=== PATIENT | male | born 1955 | race Hispanic/Latino ===

== ENCOUNTER 2018-11-24 09:08 | Inpatient (IN) | payer OTHER ==
[2018-11-24] MEDS ORDERED: Sodium Chloride 0.9% 1,000 ML IV ONE (09:48)
[2018-11-24] MEDS ORDERED: Sodium Chloride 0.9% 1,000 ML ONE (10:28)
[2018-11-24 10:33] LABS: URINE BACTERIA RARE (<OCC)
[2018-11-24 10:34] LABS: URINE BILIRUBIN NEGATIVE (NEGATIVE); URINE BLOOD 2+ (NEGATIVE); URINE CLARITY Hazy (Clear); URINE GLUCOSE (UA) NORMAL (Normal); URINE LEUKOCYTE ESTERASE 2+ Leu/uL (Negative); URINE PROTEIN 2+ mg/dL (NEGATIVE); URINE UROBILINOGEN NORMAL mg/dL (0.2-1.0)
[2018-11-24 10:36] LABS: URINE COLOR YELLOW (YELLOW)
[2018-11-24 10:51] LABS: BASO % 0.5 % (0.0-2.0); EOS # 0.2 K/uL (0.0-0.7); EOS % 2.7 % (0.0-4.0); HEMOGLOBIN 13.3 g/dL (12.0-18.0); LYMPH # 0.6 K/uL (1.0-4.3); LYMPH % 9.9 % (20.0-40.0); MEAN CELL VOLUME 92.8 fL (80.0-94.0); MEAN CORPUSCULAR HEMOGLOBIN 30.2 pg (27.0-31.0); MEAN CORPUSCULAR HGB CONC 32.6 g/dL (33.0-37.0); MEAN PLATELET VOLUME 10.1 fL (7.2-11.7); MONO # 0.9 K/uL (0.0-0.8); MONO % 13.6 % (0.0-10.0); NEUT # 4.6 K/uL (1.8-7.0); NEUT % 73.3 % (50.0-75.0); PLATELET COUNT 239 K/uL (130-400); RBC 4.41 Mil/uL (4.40-5.90); RED CELL DISTRIBUTION WIDTH 14.8 % (11.5-14.5); WHITE BLOOD COUNT 6.2 K/uL (4.8-10.8)
--- NOTE | 2018-11-24 10:57 | C.PDOC ---
History Of Present Illness 63 y/o male,w/PMhx of kidney stones, presents to the ER complaining of lower abdominal pain for the past 3 days. Patient states that he was evaluated in ER for similar symptoms and he was diagnosed with kidney stone. Patient reports that he was referred to hospital for lithotripsy. He states that he had lithotripsy on 11/21/[address]Y Hill. He notes that he still continues to have abdominal pain. He has associated nausea and vomiting.Denies having fever,chills, diarrhea, dysuria, and hematuria. Time Seen by Provider: 11/24/18 09:17 Chief Complaint (Nursing): Male Genitourinary History Per: Patient History/Exam Limitations: no limitations Onset/Duration Of Symptoms: Days Current Symptoms Are (Timing): Still Present Severity: Moderate Past Medical History Reviewed: Historical Data, Nursing Documentation, Vital Signs Vital Signs: Last Vital Signs Temp 97.7 F 11/24/18 09:12 Pulse 99 H 11/24/18 09:12 Resp 16 11/24/18 09:12 BP 145/85 11/24/18 09:12 Pulse Ox 99 11/24/18 09:12 - Medical History PMH: Crohn's Disease, Gall Bladder Disease, Hiatal Hernia, HTN, Kidney Stones Surgical History: Cholecystectomy - [facility] Procedures CHOLECYSTECTOMY (07/28/02) COLONOSCOPY (06/30/01) INCIS HERNIA REPAIR-GRFT (10/30/01) LAPAROTOMY NEC (12/31/00) OTHER ENDOSCOPY OF SM INTEST (12/31/00) PACKED CELL TRANSFUSION (12/31/00) PARENTERAL INFUSION OF CONCENTRATED NUT. 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 Constitutional: Negative for: Fever, Chills Gastrointestinal: Positive for: Nausea, Vomiting, Abdominal Pain. Negative for: Diarrhea Genitourinary: Negative for: Dysuria, Hematuria Physical Exam - Physical Exam Appears: Non-toxic, No Acute Distress Skin: Normal Color, Warm, Dry, No Rash Head: Atraumatic, Normacephalic Eye(s): bilateral: Normal Inspection Nose: Normal Oral Mucosa: Moist Neck: Normal ROM, Supple Chest: Symmetrical, No Tenderness Cardiovascular: Rhythm Regular, No Friction Rub, No Murmur Respiratory: Normal Breath Sounds, No Rales, No Rhonchi, No Wheezing Gastrointestinal/Abdominal: Bowel Sounds (active), Soft, Tenderness (LLQ tenderness), No Guarding, No Rebound Back: Normal Inspection, No CVA Tenderness Extremity: Normal ROM, No Tenderness, No Swelling Neurological/Psych: Oriented x3, Normal Speech, Normal Motor Gait: Steady ED Course And Treatment - Laboratory Results Result Diagrams: 11/24/18 10:47 11/24/18 10:47 Lab Results: Urine Color Yellow (YELLOW) 11/24/18 10:18 Urine Clarity Hazy (Clear) 11/24/18 10:18 Urine pH 5.0 (5.0-8.0) 11/24/18 10:18 Ur Specific [place] 1.016 (1.003-1.030) 11/24/18 10:18 Urine Protein 2+ mg/dL (NEGATIVE) H 11/24/18 10:18 Urine Glucose (UA) Normal mg/dL (Normal) 11/24/18 10:18 Urine Ketones Negative mg/dL (NEGATIVE) 11/24/18 10:18 Urine Blood 2+ (NEGATIVE) H 11/24/18 10:18 Urine Nitrate Negative (NEGATIVE) 11/24/18 10:18 Urine Bilirubin Negative (NEGATIVE) 11/24/18 10:18 Urine Urobilinogen Normal mg/dL (0.2-1.0) 11/24/18 10:18 Ur Leukocyte Esterase 2+ Paula/uL (Negative) H 11/24/18 10:18 Urine WBC (Auto) 48 /hpf (0-5) H 11/24/18 10:18 Urine RBC (Auto) 156 /hpf (0-3) H 11/24/18 10:18 Urine Bacteria Rare (<OCC) 11/24/18 10:18 Hyaline Casts 11-20 /lpf (0-2) H 11/24/18 10:18 O2 Sat by Pulse Oximetry: 99 (RA) Pulse Ox Interpretation: Normal - CT Scan/US CT-Abd & Pelv. Other Rad Studies (CT/US): Read By Radiologist, Radiology Report Reviewed CT/US Interpretation: PROCEDURE: CT Abdomen and Pelvis without Oral or IV contrast. HISTORY: flank pain, r/o stone. COMPARISON: None available. TECHNIQUE: Contiguous axial images of the abdomen and pelvis. No oral or IV contrast administered. Coronal and Sagittal reformats generated and reviewed. Radiation dose: Total exam DLP = 1269.78 mGy-cm. This CT exam was performed using one or more of the following dose reduction techniques: Automated exposure control, adjustment of the mA and/or kV according to patient size, and/or use of iterative reconstruction technique. FINDINGS: There is limited evaluation of the solid organs without the administration of IV contrast. LOWER THORAX: No visible consolidation, pleural effusion, or pneumothorax. LIVER: Hypoattenuation of the liver compatible with hepatic steatosis. GALLBLADDER AND BILE DUCTS: Cholecystectomy. PANCREAS: Fatty atrophy of the pancreas. SPLEEN: Unremarkable unenhanced appearance. ADRENALS: Unremarkable unenhanced appearance. KIDNEYS AND URETERS: Left-sided ureteral stent. No hydronephrosis or obstructing renal calculus. 4.5 cm heterogeneous hypodense exophytic left lower pole mass, favored to represent complex cyst. 4 mm nonobstructing left lower pole renal calculus. 2 mm midpole and 3 mm right lower pole nonobstructing renal calculi. BLADDER: Under distended urinary bladder. REPRODUCTIVE: Prostate gland measures approximately 4.0 x 4.6 cm. APPENDIX: Evidence of appendectomy. No secondary signs of acute appendicitis. BOWEL: The stomach is nondistended. Lack of oral contrast limits evaluation for bowel pathology. The bowel loops appear within normal limits of caliber without evidence of intestinal obstruction. PERITONEUM: No significant free fluid. No definite free air. LYMPH NODES: No bulky lymphadenopathy identified. VASCULATURE: Atherosclerotic calcifications of the aorta. No aortic aneurysm. BONES: Degenerative changes. OTHER FINDINGS: Bilateral fat containing inguinal hernias. IMPRESSION: Left-sided ureteral stent. 4 mm nonobstructing left lower pole renal calculus. 2 mm midpole and 3 mm right right lower pole nonobstructing renal calculi. No hydronephrosis. 4.5 cm heterogeneous hypodense exophytic left lower pole mass, favored to represent complex cyst. Further characterization may be considered with renal ultrasound. Mildly enlarged prostate gland. Recommend correlation with PSA. Additional findings as above. Medical Decision Making Medical Decision Making: Plan: --Labs --UA --CT- Abd & Pelv. --IV Fluids --Zofran IV --Toradol IV On re-exam, the patient still has pain and nausea. Not able to tolerating PO. The case was discussed with Dr. Khushi Hill (urologist) who agree the patient will need to be admitted. Case was discussed with Dr. Worrell who agrees to admit the patient to her service. Disposition - Disposition Disposition: HOME/ ROUTINE Disposition Time: 12:42 Condition: STABLE - Clinical Impression Clinical Impression: Renal colic, UTI (urinary tract infection) - PA / [employer] / Resident Statement MD/DO has reviewed & agrees with the documentation as recorded. - Scribe Statement The provider has reviewed the documentation as recorded by the Scribe Rashaun Morales Provider Attestation All medical record entries made by the Scribe were at my direction and personally dictated by me. I have reviewed the chart and agree that the record accurately reflects my personal performance of the history, physical exam, medical decision making, and the department course for this patient. I have also personally directed, reviewed, and agree with the discharge instructions and disposition.
[2018-11-24 11:06] LABS: ALB/GLOB RATIO 1.3 (1.0-2.1); ALBUMIN 4.1 g/dL (3.5-5.0); BLOOD UREA NITROGEN 8 mg/dL (9-20); CALCIUM 9.2 mg/dl (8.6-10.4); GFR NON-AFRICAN AMERICAN > 60; LIPASE 79 U/L (23-300)
[2018-11-24 11:07] LABS: ALT/SGPT 32 U/L (21-72); AST/SGOT 74 U/L (17-59)
[2018-11-24 11:15] LABS: BASOPHIL 1 % (0-2); EOSINOPHIL 4 % (0-4); LYMPHOCYTE 12 % (20-40); MONOCYTE 12 % (0-10); NEUTROPHIL 71 % (50-75); PLATELET ESTIMATE NORMAL (NORMAL); TOTAL CELLS COUNTED 100
--- NOTE | 2018-11-24 11:26 | CT ---
PROCEDURE: CT Abdomen and Pelvis without Oral or IV contrast. HISTORY: flank pain, r/o stone COMPARISON: None available. TECHNIQUE: Contiguous axial images of the abdomen and pelvis. No oral or IV contrast administered. Coronal and Sagittal reformats generated and reviewed. Radiation dose: Total exam DLP = 1269.78 mGy-cm. This CT exam was performed using one or more of the following dose reduction techniques: Automated exposure control, adjustment of the mA and/or kV according to patient size, and/or use of iterative reconstruction technique. FINDINGS: There is limited evaluation of the solid organs without the administration of IV contrast. LOWER THORAX: No visible consolidation, pleural effusion, or pneumothorax. LIVER: Hypoattenuation of the liver compatible with hepatic steatosis. GALLBLADDER AND BILE DUCTS: Cholecystectomy. PANCREAS: Fatty atrophy of the pancreas. SPLEEN: Unremarkable unenhanced appearance. ADRENALS: Unremarkable unenhanced appearance. KIDNEYS AND URETERS: Left-sided ureteral stent. No hydronephrosis or obstructing renal calculus. 4.5 cm heterogeneous hypodense exophytic left lower pole mass, favored to represent complex cyst. 4 mm nonobstructing left lower pole renal calculus. 2 mm midpole and 3 mm right lower pole nonobstructing renal calculi. BLADDER: Under distended urinary bladder. REPRODUCTIVE: Prostate gland measures approximately 4.0 x 4.6 cm. APPENDIX: Evidence of appendectomy. No secondary signs of acute appendicitis. BOWEL: The stomach is nondistended. Lack of oral contrast limits evaluation for bowel pathology. The bowel loops appear within normal limits of caliber without evidence of intestinal obstruction. PERITONEUM: No significant free fluid. No definite free air. LYMPH NODES: No bulky lymphadenopathy identified. VASCULATURE: Atherosclerotic calcifications of the aorta. No aortic aneurysm. BONES: Degenerative changes. OTHER FINDINGS: Bilateral fat containing inguinal hernias. IMPRESSION: Left-sided ureteral stent. 4 mm nonobstructing left lower pole renal calculus. 2 mm midpole and 3 mm right right lower pole nonobstructing renal calculi. No hydronephrosis. 4.5 cm heterogeneous hypodense exophytic left lower pole mass, favored to represent complex cyst. Further characterization may be considered with renal ultrasound. Mildly enlarged prostate gland. Recommend correlation with PSA. Additional findings as above.
[2018-11-24] MEDS ORDERED: Ciprofloxacin 400mg/200ml D5W 400 MG/200 ML BAG IV STA (13:06)
[2018-11-24] MEDS ORDERED: Ciprofloxacin 400mg/200ml D5W 400 MG/200 ML BAG IVPB ONE (13:21)
--- NOTE | 2018-11-24 14:54 | RAD ---
Date of service: 11/24/2018 HISTORY: kidney stones COMPARISON: CT abdomen pelvis without contrast performed 11/24/18 at 1026 hr FINDINGS: BOWEL: Nonobstructive bowel gas pattern. No definite free air. Surgical clips noted in the right abdomen consistent with prior appendectomy. Cholecystectomy clips. BONES: Osseous demineralization. Degenerative changes. OTHER FINDINGS: Left ureteral stent. Pelvic calcifications, likely phleboliths. IMPRESSION: No acute findings. See above.
--- NOTE | 2018-11-24 19:08 | CP.PCM.HP ---
History of Present Illness - History of Present Illness History of Present Illness: pt came to ed for discomfort urination abdominal pain renal stones Present on Admission - Present on Admission Any Indicators Present on Admission: No Review of Systems - Review of Systems Systems not reviewed;Unavailable: Acuity of Condition - Constitutional Constitutional: As Per HPI - EENT Eyes: As Per HPI Ears: As Per HPI Nose/Mouth/Throat: As Per HPI - Cardiovascular Cardiovascular: As Per HPI - Respiratory Respiratory: As Per HPI - Gastrointestinal Gastrointestinal: Abdominal Pain, Bloating - Genitourinary Genitourinary: Dysuria, Flank Pain, Urinary Frequency - Reproductive: Male Reproductive:Male: As Per HPI - Musculoskeletal Musculoskeletal: As Per HPI - Integumentary Integumentary: As Per HPI - Neurological Neurological: As Per HPI - Psychiatric Psychiatric: As Per HPI - Endocrine Endocrine: As Per HPI - Hematologic/Lymphatic Hematologic: As Per HPI Past Patient History - Past Medical History & Family History Past Medical History?: Yes - Past Social History Smoking Status: Never Smoked - CARDIAC Hx Hypertension: Yes - RENAL Hx Kidney Stones: Yes - MUSCULOSKELETAL/RHEUMATOLOGICAL Hx Falls: No - GASTROINTESTINAL Hx Crohn's Disease: Yes Hx Gall Bladder Disease: Yes - PSYCHIATRIC Hx Substance Use: No - SURGICAL HISTORY Hx Cholecystectomy: Yes - ANESTHESIA Hx Anesthesia: Yes Hx Anesthesia Reactions: No Meds Allergies/Adverse Reactions: Allergies Allergy/AdvReac Type Severity Reaction Status Date / Time No Known Allergies Allergy Verified 11/24/18 09:24 Physical Exam - Constitutional Appears: Non-toxic - Head Exam Head Exam: ATRAUMATIC - Eye Exam Eye Exam: Normal appearance Pupil Exam: NORMAL ACCOMODATION - ENT Exam ENT Exam: Mucous Membranes Moist - Neck Exam Neck exam: Positive for: Normal Inspection - Respiratory Exam Respiratory Exam: Clear to Auscultation Bilateral - Cardiovascular Exam Cardiovascular Exam: REGULAR RHYTHM - GI/Abdominal Exam GI & Abdominal Exam: Normal Bowel Sounds, Tenderness - Rectal Exam Rectal Exam: NORMAL INSPECTION - Exam Exam: NORMAL INSPECTION - Extremities Exam Extremities exam: Positive for: normal inspection - Back Exam Back exam: NORMAL INSPECTION - Neurological Exam Neurological exam: Alert, Normal Gait, Oriented x3 - Psychiatric Exam Psychiatric exam: Normal Affect - Skin Skin Exam: Normal Color Results - Vital Signs Recent Vital Signs: Last Vital Signs Temp 98.2 F 11/24/18 15:46 Pulse 68 11/24/18 15:46 Resp 16 11/24/18 15:46 BP 126/75 11/24/18 15:46 Pulse Ox 99 11/24/18 18:40 - Labs Result Diagrams: 11/24/18 10:47 11/24/18 10:47 Labs: Laboratory Results - last 24 hr 11/24/18 11/24/18 11/24/18 10:18 10:47 10:47 WBC 6.2 RBC 4.41 Hgb 13.3 Hct 40.9 MCV 92.8 MCH 30.2 MCHC 32.6 L RDW 14.8 H Plt Count 239 MPV 10.1 Neut % (Auto) 73.3 Lymph % (Auto) 9.9 L [place] % (Auto) 13.6 H Eos % (Auto) 2.7 Baso % (Auto) 0.5 Neut # (Auto) 4.6 Lymph # (Auto) 0.6 L [place] # (Auto) 0.9 H Eos # (Auto) 0.2 Baso # (Auto) 0.0 Neutrophils % (Manual) 71 Lymphocytes % (Manual) 12 L Monocytes % (Manual) 12 H Eosinophils % (Manual) 4 Basophils % (Manual) 1 Platelet Estimate Normal Sodium 139 Potassium 4.0 Chloride 103 Carbon Dioxide 26 Anion Gap 14 BUN 8 L Creatinine 0.9 Est GFR ( Amer) > 60 Est GFR (Non-Af Amer) > 60 Random Glucose 107 Calcium 9.2 Total Bilirubin 1.1 AST 74 H ALT 32 Alkaline Phosphatase 83 Total Protein 7.4 Albumin 4.1 Globulin 3.2 Albumin/Globulin Ratio 1.3 Lipase 79 Urine Color Yellow Urine Clarity Hazy Urine pH 5.0 Ur Specific [place] 1.016 Urine Protein 2+ H Urine Glucose (UA) Normal Urine Ketones Negative Urine Blood 2+ H Urine Nitrate Negative Urine Bilirubin Negative Urine Urobilinogen Normal Ur Leukocyte Esterase 2+ H Urine WBC (Auto) 48 H Urine RBC (Auto) 156 H Urine Bacteria Rare Hyaline Casts 11-20 H Assessment & Plan - Assessment and Plan (Free Text) Assessment: acute uti renal stones chrons disease htn Plan: admit dr queen consult and as per orders npo mid night - Date & Time Date: 11/24/18 Time: 19:12
[2018-11-24 20:18] LABS: INR 1.3; PROTHROMBIN TIME 13.9 SECONDS (9.7-12.2)
[2018-11-24] MEDS: Oxycodone/Acetaminophen 5/325 mg Tab PO PRN (21:46)
--- NOTE | 2018-11-24 23:05 | CP.PCM.CON ---
History of Present Illness - History of Present Illness History of Present Illness: UROLOGY CONSULTATION IMP: UROLITHIASIS HX OF RENAL COLIC 10/2018 PREVIOUS ESWL NOW W ABD PAIN, N &V OBESITY EDEMA OF LE CROHN'S DISEASE INDWELLING L URETERAL STENT DISCUSSED W HOSP STAFF AND ATTENDING STAFF YS Past Patient History - Past Medical History & Family History Past Medical History?: Yes - Past Social History Smoking Status: Never Smoked - CARDIAC Hx Hypertension: Yes - RENAL Hx Kidney Stones: Yes - MUSCULOSKELETAL/RHEUMATOLOGICAL Hx Falls: No - GASTROINTESTINAL Hx Crohn's Disease: Yes Hx Gall Bladder Disease: Yes - PSYCHIATRIC Hx Substance Use: No - SURGICAL HISTORY Hx Cholecystectomy: Yes - ANESTHESIA Hx Anesthesia: Yes Hx Anesthesia Reactions: No Meds Allergies/Adverse Reactions: Allergies Allergy/AdvReac Type Severity Reaction Status Date / Time No Known Allergies Allergy Verified 11/24/18 09:24 - Medications Medications: Current Medications Azathioprine (Imuran) 125 mg PO DAILY [facility] Enoxaparin Sodium (Lovenox) 40 mg SC DAILY [facility] Home Med (Mesalamine [Mesalamine]) 1.2 gm PO DAILY [facility] Ceftriaxone Sodium (Rocephin Iv 1 Gm Duplex) 50 mls @ 100 mls/hr IVPB DAILY [facility]; Protocol Lisinopril (Zestril) 20 mg PO DAILY [facility] Multivitamins/Minerals (Therapeutic-M Tab) 1 tab PO DAILY [facility] Mupirocin (Bactroban Ointment) 0 gm TOP TID [facility] Last Admin: 11/24/18 19:00 Dose: 1 applic Ondansetron HCl (Zofran Tab) 4 mg PO Q8H PRN PRN Reason: nausea Oxycodone/Acetaminophen (Percocet 5/325 Mg Tab) 1 tab PO Q6H PRN PRN Reason: Pain, Mild (1-3) Stop: 11/27/18 17:13 Last Admin: 11/24/18 21:46 Dose: 1 tab Pantoprazole Sodium (Protonix Ec Tab) 40 mg PO DAILY [facility] Pneumococcal Polyvalent Vaccine (Pneumovax 23 Vaccine) 0.5 ml IM .ONCE ONE Stop: 11/26/18 10:01 Sumatriptan Succinate (Imitrex Tab) 100 mg PO DAILY PRN PRN Reason: Migraine headache Last Admin: 11/24/18 22:31 Dose: 100 mg Tamsulosin HCl (Flomax) 0.4 mg PO DAILY [facility] Results - Vital Signs Recent Vital Signs: Last Vital Signs Temp 98.4 F 11/24/18 19:03 Pulse 95 H 11/24/18 19:03 Resp 20 11/24/18 19:03 BP 123/79 11/24/18 19:03 Pulse Ox 94 L 11/24/18 19:03 - Labs Result Diagrams: 11/24/18 10:47 11/24/18 10:47 Labs: Laboratory Results - last 24 hr 11/24/18 11/24/18 11/24/18 10:18 10:47 10:47 WBC 6.2 RBC 4.41 Hgb 13.3 Hct 40.9 MCV 92.8 MCH 30.2 MCHC 32.6 L RDW 14.8 H Plt Count 239 MPV 10.1 Neut % (Auto) 73.3 Lymph % (Auto) 9.9 L [place] % (Auto) 13.6 H Eos % (Auto) 2.7 Baso % (Auto) 0.5 Neut # (Auto) 4.6 Lymph # (Auto) 0.6 L [place] # (Auto) 0.9 H Eos # (Auto) 0.2 Baso # (Auto) 0.0 Neutrophils % (Manual) 71 Lymphocytes % (Manual) 12 L Monocytes % (Manual) 12 H Eosinophils % (Manual) 4 Basophils % (Manual) 1 Platelet Estimate Normal PT INR APTT Sodium 139 Potassium 4.0 Chloride 103 Carbon Dioxide 26 Anion Gap 14 BUN 8 L Creatinine 0.9 Est GFR ( Amer) > 60 Est GFR (Non-Af Amer) > 60 POC Glucose (mg/dL) Random Glucose 107 Calcium 9.2 Total Bilirubin 1.1 AST 74 H ALT 32 Alkaline Phosphatase 83 Total Protein 7.4 Albumin 4.1 Globulin 3.2 Albumin/Globulin Ratio 1.3 Lipase 79 Urine Color Yellow Urine Clarity Hazy Urine pH 5.0 Ur Specific [place] 1.016 Urine Protein 2+ H Urine Glucose (UA) Normal Urine Ketones Negative Urine Blood 2+ H Urine Nitrate Negative Urine Bilirubin Negative Urine Urobilinogen Normal Ur Leukocyte Esterase 2+ H Urine WBC (Auto) 48 H Urine RBC (Auto) 156 H Urine Bacteria Rare Hyaline Casts 11-20 H 11/24/18 11/24/18 14:35 19:59 WBC RBC Hgb Hct MCV MCH MCHC RDW Plt Count MPV Neut % (Auto) Lymph % (Auto) [place] % (Auto) Eos % (Auto) Baso % (Auto) Neut # (Auto) Lymph # (Auto) [place] # (Auto) Eos # (Auto) Baso # (Auto) Neutrophils % (Manual) Lymphocytes % (Manual) Monocytes % (Manual) Eosinophils % (Manual) Basophils % (Manual) Platelet Estimate PT 13.9 H INR 1.3 APTT 33 Sodium Potassium Chloride Carbon Dioxide Anion Gap BUN Creatinine Est GFR ( Amer) Est GFR (Non-Af Amer) POC Glucose (mg/dL) 103 Random Glucose Calcium Total Bilirubin AST ALT Alkaline Phosphatase Total Protein Albumin Globulin Albumin/Globulin Ratio Lipase Urine Color Urine Clarity Urine pH Ur Specific [place] Urine Protein Urine Glucose (UA) Urine Ketones Urine Blood Urine Nitrate Urine Bilirubin Urine Urobilinogen Ur Leukocyte Esterase Urine WBC (Auto) Urine RBC (Auto) Urine Bacteria Hyaline Casts Assessment & Plan - Assessment and Plan (Free Text) Assessment: SEE ABOVE - Date & Time Date: 11/24/18 Time: 10:00
[2018-11-25] MEDS ORDERED: Lidocaine 2% Jelly (Uro-Jet) ONE (07:30)
[2018-11-25] MEDS ORDERED: cefTRIAXone 1 gm 1 GM/100 ML BAG IVPB ONE (07:30)
[2018-11-25] MEDS ORDERED: Midazolam 2 MG/2 ML VIAL ONE (08:38)
[2018-11-25] MEDS ORDERED: Propofol 10 mg/ml Inj (20 ML) ONE (08:38)
[2018-11-25] MEDS ORDERED: Gentamicin 80 mg in 0.9% NS 160 MG/200 ML BAG IVPB ONE (09:23)
[2018-11-25] MEDS ORDERED: Succinylcholine Chloride 20 mg/ml Syr (5 ml) IV ONE (09:33)
[2018-11-25] MEDS: cefTRIAXone IV 1 gm in Dextros 50 ML IVPB SCH (10:22)
--- NOTE | 2018-11-25 10:27 | PCM.SURG1 ---
Surgeon's Initial Post Op Note - Surgeon's Notes Surgeon: Khushi Hill Steeplechase Jockey: none Type of Anesthesia: General Endo Pre-Operative Diagnosis: L ureteral calculus Operative Findings: same Post-Operative Diagnosis: same Operation Performed: cysto. L uretroscopy. laser lithotripsy. stone basketing. stent insertion Specimen/Specimens Removed: stone Estimated Blood Loss: EBL {In ML}: 5 Blood Products Given: N/A Post-Op Condition: Good Date of Surgery/Procedure: 11/25/18 Time of Surgery/Procedure: 10:15
--- NOTE | 2018-11-25 10:54 | CP.PCM.PN ---
Subjective - Date & Time of Evaluation Date of Evaluation: 11/25/18 Time of Evaluation: 10:51 - Subjective Subjective: PT SEEN BY DR VARGHESE HAS CYSTOSCOPY TODAY STILL ON IV ANTIBIOTICS Objective - Vital Signs/Intake and Output Vital Signs (last 24 hours): Temp Pulse Resp BP Pulse Ox 98.6 F 62 20 108/63 98 11/25/18 07:20 11/25/18 07:20 11/25/18 07:20 11/25/18 07:20 11/25/18 07:20 Intake and Output: 11/25/18 11/25/18 06:59 18:59 Intake Total 5400 900 Output Total 3150 Balance 2250 900 - Medications Medications: Current Medications Azathioprine (Imuran) 125 mg PO DAILY [facility] Enoxaparin Sodium (Lovenox) 40 mg SC DAILY [facility] Ceftriaxone Sodium (Rocephin Iv 1 Gm Duplex) 50 mls @ 100 mls/hr IVPB DAILY [facility]; Protocol Lactated Ringer's (Lactated Ringer's) 1,000 mls @ 100 mls/hr IV .Q10H [facility] Lisinopril (Zestril) 20 mg PO DAILY [facility] Mesalamine (Delzicol Dr) 1,200 mg PO DAILY [facility] Morphine Sulfate (Morphine) 1 mg IVP Q10M PRN PRN Reason: Pain, moderate (4-7) Stop: 11/25/18 12:32 Multivitamins/Minerals (Therapeutic-M Tab) 1 tab PO DAILY [facility] Mupirocin (Bactroban Ointment) 0 gm TOP TID [facility] Last Admin: 11/24/18 19:00 Dose: 1 applic Ondansetron HCl (Zofran Tab) 4 mg PO Q8H PRN PRN Reason: nausea Oxycodone/Acetaminophen (Percocet 5/325 Mg Tab) 1 tab PO Q6H PRN PRN Reason: Pain, Mild (1-3) Stop: 11/27/18 17:13 Last Admin: 11/24/18 21:46 Dose: 1 tab Pantoprazole Sodium (Protonix Ec Tab) 40 mg PO DAILY [facility] Pneumococcal Polyvalent Vaccine (Pneumovax 23 Vaccine) 0.5 ml IM .ONCE ONE Stop: 11/26/18 10:01 Sumatriptan Succinate (Imitrex Tab) 100 mg PO DAILY PRN PRN Reason: Migraine headache Last Admin: 11/24/18 22:31 Dose: 100 mg Tamsulosin HCl (Flomax) 0.4 mg PO DAILY [facility] - Labs Labs: 11/24/18 10:47 11/24/18 10:47 PT 13.9 SECONDS (9.7-12.2) H 11/24/18 19:59 INR 1.3 11/24/18 19:59 APTT 33 SECONDS (21-34) 11/24/18 19:59 - Constitutional Appears: Non-toxic - Head Exam Head Exam: ATRAUMATIC - Eye Exam Eye Exam: Normal appearance Pupil Exam: NORMAL ACCOMODATION - ENT Exam ENT Exam: Mucous Membranes Moist - Neck Exam Neck Exam: Full ROM - Respiratory Exam Respiratory Exam: Clear to Ausculation Bilateral - Cardiovascular Exam Cardiovascular Exam: REGULAR RHYTHM - GI/Abdominal Exam GI & Abdominal Exam: Tenderness, Normal Bowel Sounds Additional comments: FLANK AREA - Exam Exam: NORMAL INSPECTION - Extremities Exam Extremities Exam: Normal Inspection - Back Exam Back Exam: NORMAL INSPECTION - Neurological Exam Neurological Exam: Normal Gait - Psychiatric Exam Psychiatric exam: Normal Affect, Normal Mood - Skin Skin Exam: Normal Color Assessment and Plan - Assessment and Plan (Free Text) Assessment: AC UTI RENAL [place] RENAL COLIC Plan: CONT ORDERED
[2018-11-25] MEDS ORDERED: HYDROmorphone 0.5 mg/0.5 ml ISec ONE (11:04)
[2018-11-25] MEDS: Enoxaparin 40 mg Syringe SC SCH (11:08)
[2018-11-25] MEDS: Pantoprazole 40 mg EC Tab PO SCH ×2 (11:08→12:35)
[2018-11-25] MEDS: Multivitamin With Minerals Tab PO SCH ×2 (11:09→12:34)
[2018-11-25] MEDS: HYDROmorphone 0.5 mg/0.5 ml ISec IVP PRN ×2 (11:17→11:28)
[2018-11-25] MEDS: Lactated Ringer's 1,000 ML IV SCH ×2 (12:38→21:40)
--- NOTE | 2018-11-25 18:02 | RAD ---
Date of service: 11/25/2018 PROCEDURE: Intraoperative Fluoroscopy. HISTORY: LT. URETER CALCULI FINDINGS: Fluoroscopic assistance was provided for left stent placement. Please refer to the operative report from Dr. VARGHESE, [place]. Total fluoroscopic time (continuous mode) utilized during the procedure 7.4 seconds. Total exam DLP: 1.18 (mGy).
--- NOTE | 2018-11-25 20:18 | CARD ---
APPROVED REPORT Date of service: 11/24/2018 EKG Measurement Heart [id number] <Conclusion> Sinus rhythm with short SC Otherwise normal ECG
[2018-11-26 07:45] LABS: BLOOD UREA NITROGEN 10 mg/dL (9-20); CALCIUM 8.5 mg/dl (8.6-10.4); GFR NON-AFRICAN AMERICAN > 60
[2018-11-26] MEDS: Oxycodone/Acetaminophen 5/325 mg Tab PO PRN ×4 (07:50→20:36)
[2018-11-26] MEDS: Lactated Ringer's 1,000 ML IV SCH ×2 (07:52→17:26)
[2018-11-26 07:59] LABS: HEMOGLOBIN 11.5 g/dL (12.0-18.0); MEAN CELL VOLUME 92.8 fL (80.0-94.0); MEAN CORPUSCULAR HEMOGLOBIN 30.3 pg (27.0-31.0); MEAN CORPUSCULAR HGB CONC 32.6 g/dL (33.0-37.0); MEAN PLATELET VOLUME 10.4 fL (7.2-11.7); RBC 3.81 Mil/uL (4.40-5.90); RED CELL DISTRIBUTION WIDTH 15.1 % (11.5-14.5); WHITE BLOOD COUNT 4.7 K/uL (4.8-10.8)
[2018-11-26] MEDS: Pantoprazole 40 mg EC Tab PO SCH (09:22)
[2018-11-26] MEDS: Multivitamin With Minerals Tab PO SCH (09:23)
[2018-11-26] MEDS: cefTRIAXone IV 1 gm in Dextros 50 ML IVPB SCH (09:32)
[2018-11-26] MEDS ORDERED: Pneumococcal 23-Valent Vaccine IM ONE (10:00)
[2018-11-26] MEDS: Enoxaparin 40 mg Syringe SC SCH (10:21)
--- NOTE | 2018-11-26 14:30 | CP.PCM.PN ---
Subjective - Date & Time of Evaluation Date of Evaluation: 11/26/18 Time of Evaluation: 14:27 - Subjective Subjective: pt has swallen legs painful numness feel uti Objective - Vital Signs/Intake and Output Vital Signs (last 24 hours): Temp Pulse Resp BP Pulse Ox 98.3 F 64 20 126/79 97 11/26/18 07:20 11/26/18 07:20 11/26/18 07:20 11/26/18 11:05 11/26/18 07:20 Intake and Output: 11/26/18 11/26/18 06:59 18:59 Intake Total 1999 Output Total 1700 1999 Balance 300 -2000 - Medications Medications: Current Medications Azathioprine (Imuran) 125 mg PO HS [facility] Last Admin: 11/25/18 21:37 Dose: 125 mg Cholestyramine Resin (Prevalite) 4 gm PO BID [facility] Enoxaparin Sodium (Lovenox) 40 mg SC DAILY [facility] Last Admin: 11/26/18 10:21 Dose: Not Given Furosemide (Lasix) 40 mg IVP DAILY [facility] Stop: 11/29/18 10:01 Hydromorphone HCl (Dilaudid) 0.5 mg IVP Q10M PRN PRN Reason: Pain, moderate (4-7) Last Admin: 11/25/18 11:28 Dose: 0.5 mg Ceftriaxone Sodium (Rocephin Iv 1 Gm Duplex) 50 mls @ 100 mls/hr IVPB DAILY [facility]; Protocol Last Admin: 11/26/18 09:32 Dose: 100 mls/hr Lactated Ringer's (Lactated Ringer's) 1,000 mls @ 100 mls/hr IV .Q10H [facility] Last Admin: 11/26/18 07:52 Dose: 100 mls/hr Lisinopril (Zestril) 20 mg PO DAILY [facility] Last Admin: 11/26/18 09:22 Dose: 20 mg Mesalamine (Delzicol Dr) 1,200 mg PO DAILY [facility] Last Admin: 11/26/18 09:23 Dose: 1,200 mg Multivitamins/Minerals (Therapeutic-M Tab) 1 tab PO DAILY [facility] Last Admin: 11/26/18 09:23 Dose: 1 tab Mupirocin (Bactroban Ointment) 0 gm TOP TID [facility] Last Admin: 11/26/18 14:20 Dose: 1 applic Ondansetron HCl (Zofran Tab) 4 mg PO Q8H PRN PRN Reason: nausea Last Admin: 11/26/18 09:23 Dose: 4 mg Oxycodone/Acetaminophen (Percocet 5/325 Mg Tab) 1 tab PO Q6H PRN PRN Reason: Pain, Mild (1-3) Stop: 11/27/18 17:13 Last Admin: 11/26/18 07:50 Dose: 1 tab Pantoprazole Sodium (Protonix Ec Tab) 40 mg PO DAILY [facility] Last Admin: 11/26/18 09:22 Dose: 40 mg Potassium Chloride (K-Dur 20 Meq Er Tab) 20 meq PO DAILY [facility] Stop: 11/30/18 10:01 Sumatriptan Succinate (Imitrex Tab) 100 mg PO DAILY PRN PRN Reason: Migraine headache Last Admin: 11/25/18 21:35 Dose: 100 mg Tamsulosin HCl (Flomax) 0.4 mg PO DAILY [facility] Last Admin: 11/26/18 09:23 Dose: 0.4 mg - Labs Labs: 11/26/18 07:21 11/26/18 07:21 PT 13.9 SECONDS (9.7-12.2) H 11/24/18 19:59 INR 1.3 11/24/18 19:59 APTT 33 SECONDS (21-34) 11/24/18 19:59 - Constitutional Appears: Non-toxic - Head Exam Head Exam: ATRAUMATIC - Eye Exam Eye Exam: Normal appearance Pupil Exam: NORMAL ACCOMODATION - ENT Exam ENT Exam: Mucous Membranes Moist - Neck Exam Neck Exam: Full ROM - Respiratory Exam Respiratory Exam: Clear to Ausculation Bilateral - Cardiovascular Exam Cardiovascular Exam: REGULAR RHYTHM - GI/Abdominal Exam GI & Abdominal Exam: Normal Bowel Sounds - Rectal Exam Rectal Exam: NORMAL INSPECTION - Extremities Exam Extremities Exam: Full ROM, Pedal Edema Additional comments: feet numness - Back Exam Back Exam: NORMAL INSPECTION - Neurological Exam Neurological Exam: Alert, Awake, Oriented x3 - Psychiatric Exam Psychiatric exam: Normal Mood - Skin Skin Exam: Normal Color Assessment and Plan - Assessment and Plan (Free Text) Assessment: oeadeama numness feet uti Plan: as per orders
[2018-11-26] MEDS: Cholestyramine 4 gm/5.5 gm UD Packet PO SCH (18:14)
--- NOTE | 2018-11-26 23:42 | PCM.URO ---
Urology Progress Note - General General: Tolerating Diet - Subjective Abdominal Pain: No Flank Pain: No Nausea: Yes (less) Vomiting: No Hematuria: No (resolved) Dsypnea: No Chest Pain: No Fever & Chills: No - Objective Lab Results Last 24 Hours: Laboratory Results - last 24 hr 11/26/18 11/26/18 07:21 07:21 WBC 4.7 L RBC 3.81 L Hgb 11.5 L Hct 35.4 MCV 92.8 MCH 30.3 MCHC 32.6 L RDW 15.1 H Plt Count 175 MPV 10.4 Sodium 137 Potassium 3.8 Chloride 103 Carbon Dioxide 31 H Anion Gap 7 L BUN 10 Creatinine 0.9 Est GFR ( Amer) > 60 Est GFR (Non-Af Amer) > 60 Random Glucose 103 Calcium 8.5 L Intake & Output: Intake & Output 11/26/18 11/26/18 11/27/18 06:59 18:59 06:59 Intake Total 2000 1400 1300 Output Total 1700 2400 800 Balance 300 -1000 500 Intake: Intake, IV Amount 800 800 800 Left Forearm 800 800 800 Oral 1200 600 500 Output: Urine 1700 2400 800 Urethral (Black) 1700 1600 Urine, Voided 800 800 Other: # Bowel Movements 0 Vital Signs: Vital Signs - 24 hr 11/25/18 11/26/18 11/26/18 23:45 07:20 11:05 Temperature 98.1 F 98.3 F Pulse Rate 78 64 Respiratory 20 20 Rate Blood Pressure 133/77 117/76 126/79 O2 Sat by Pulse 95 97 Oximetry 11/26/18 15:30 Temperature 98 F Pulse Rate 72 Respiratory 20 Rate Blood Pressure 95/57 L O2 Sat by Pulse 95 Oximetry - Physical Exam Abdominal Exam: Soft, Non-Tender, Non-Distended Back: No CVA Tenderness Genitalia: Without Inflammation Urinary Catheter Draining Well: Yes Urine Color: Yellow - Male Phallus: Normal Scrotum: Edema - Plan Discontinue Urinary Catheter: Yes Ambulation - Out of Bed: Yes See Orders: Yes Additional Information: IMP: stable p cysto, ureteroscopy, laser lithotripsy and stone basketing. P: D/C black. antibiotic rx. Ureteral stent in place. Stone analysis - pending. Discussed w pt and w nursing staff - Date & Time of Note Date: 11/26/18 Time: 11:30
[2018-11-27] MEDS: Lactated Ringer's 1,000 ML IV SCH ×2 (02:45→03:42)
[2018-11-27] MEDS: Pantoprazole 40 mg EC Tab PO SCH (09:05)
[2018-11-27] MEDS: Potassium Chloride 20 mEq ER Tab PO SCH (09:05)
[2018-11-27] MEDS: Multivitamin With Minerals Tab PO SCH (09:05)
[2018-11-27] MEDS: Enoxaparin 40 mg Syringe SC SCH (09:06)
[2018-11-27] MEDS: cefTRIAXone IV 1 gm in Dextros 50 ML IVPB SCH (09:18)
[2018-11-27] MEDS: Cholestyramine 4 gm/5.5 gm UD Packet PO SCH (11:14)
[2018-11-27] MEDS: Oxycodone/Acetaminophen 5/325 mg Tab PO PRN (13:10)
[2018-11-27] MEDS ORDERED: Bisacodyl 5mg EC Tab PO ONE (13:56)
[2018-11-27] MEDS: Cholestyramine 4 gm/Pkt UD PO SCH (17:58)
[2018-11-27] MEDS ORDERED: Magnesium Hydroxide Susp 30 ml UD PO ONE ×2 (18:00→18:18)
--- NOTE | 2018-11-27 18:20 | CP.PCM.PN ---
Subjective - Date & Time of Evaluation Date of Evaluation: 11/27/18 Time of Evaluation: 18:18 - Subjective Subjective: pt has constipation a lot of gas nausea Objective - Vital Signs/Intake and Output Vital Signs (last 24 hours): Temp Pulse Resp BP Pulse Ox 98.1 F 71 20 109/70 95 11/27/18 15:00 11/27/18 15:00 11/27/18 15:00 11/27/18 15:00 11/27/18 15:00 Intake and Output: 11/27/18 11/27/18 06:59 18:59 Intake Total 2450 600 Output Total 1400 800 Balance 1050 -200 - Medications Medications: Current Medications Azathioprine (Imuran) 125 mg PO HS [facility] Last Admin: 11/26/18 21:12 Dose: 125 mg Cholestyramine Resin (Questran) 4 gm PO BID [facility] Last Admin: 11/27/18 17:58 Dose: Not Given Enoxaparin Sodium (Lovenox) 40 mg SC DAILY [facility] Last Admin: 11/27/18 09:06 Dose: 40 mg Furosemide (Lasix) 40 mg IVP DAILY [facility] Stop: 11/29/18 10:01 Last Admin: 11/27/18 09:05 Dose: 40 mg Hydromorphone HCl (Dilaudid) 0.5 mg IVP Q10M PRN PRN Reason: Pain, moderate (4-7) Last Admin: 11/25/18 11:28 Dose: 0.5 mg Ceftriaxone Sodium (Rocephin Iv 1 Gm Duplex) 50 mls @ 100 mls/hr IVPB DAILY [facility]; Protocol Last Admin: 11/27/18 09:18 Dose: 100 mls/hr Lisinopril (Zestril) 20 mg PO DAILY [facility] Last Admin: 11/27/18 09:05 Dose: 20 mg Magnesium Hydroxide (Milk Of Magnesia) 30 ml PO ONCE ONE Stop: 11/27/18 18:19 Mesalamine (Delzicol Dr) 1,200 mg PO DAILY [facility] Last Admin: 11/27/18 09:10 Dose: 1,200 mg Multivitamins/Minerals (Therapeutic-M Tab) 1 tab PO DAILY [facility] Last Admin: 11/27/18 09:05 Dose: 1 tab Mupirocin (Bactroban Ointment) 0 gm TOP TID [facility] Last Admin: 11/27/18 17:57 Dose: 1 applic Ondansetron HCl (Zofran Inj) 4 mg IVP Q6 PRN PRN Reason: Nausea/Vomiting Last Admin: 11/27/18 17:57 Dose: 4 mg Pantoprazole Sodium (Protonix Ec Tab) 40 mg PO DAILY [facility] Last Admin: 11/27/18 09:05 Dose: 40 mg Potassium Chloride (K-Dur 20 Meq Er Tab) 20 meq PO DAILY [facility] Stop: 11/30/18 10:01 Last Admin: 11/27/18 09:05 Dose: 20 meq Sumatriptan Succinate (Imitrex Tab) 100 mg PO DAILY PRN PRN Reason: Migraine headache Last Admin: 11/26/18 20:42 Dose: 100 mg Tamsulosin HCl (Flomax) 0.4 mg PO DAILY [facility] Last Admin: 11/27/18 09:10 Dose: 0.4 mg - Labs Labs: 11/26/18 07:21 11/26/18 07:21 PT 13.9 SECONDS (9.7-12.2) H 11/24/18 19:59 INR 1.3 11/24/18 19:59 APTT 33 SECONDS (21-34) 11/24/18 19:59 - Head Exam Head Exam: NORMAL INSPECTION - Eye Exam Eye Exam: Normal appearance Pupil Exam: NORMAL ACCOMODATION - ENT Exam ENT Exam: Normal Exam - Neck Exam Neck Exam: Normal Inspection - Respiratory Exam Respiratory Exam: Decreased Breath Sounds - Cardiovascular Exam Cardiovascular Exam: REGULAR RHYTHM - GI/Abdominal Exam GI & Abdominal Exam: Distended, Soft - Exam Exam: NORMAL INSPECTION - Extremities Exam Extremities Exam: Normal Inspection - Back Exam Back Exam: NORMAL INSPECTION - Neurological Exam Neurological Exam: Altered - Psychiatric Exam Psychiatric exam: Normal Mood - Skin Skin Exam: Normal Color Assessment and Plan - Assessment and Plan (Free Text) Assessment: constipation abd gas nausea uti Plan: as ordered
--- NOTE | 2018-11-27 19:10 | CON ---
DATE: 11/27/2018 This is a 63-year-old white male, alert, oriented x3. He is seen at bedside with initial complaint of numbness of both lower extremities. Upon physical examination, we find an alert and oriented 63-year-old with no evidence of lower extremity ulceration. Good dorsalis pedis and tibialis posterior arteries are palpated. He does have +2 pitting edema of his both extremities with pes planus deformities. No obvious overt ulcerations noted. Hypertrophic onychomycosis is noted bilaterally. No infection is appreciated. Suggested to the patient elevation of extremities. Will do nail debridement on an outpatient basis. No need for surgical intervention at this time. Vel Be DPM
--- NOTE | 2018-11-28 02:12 | CON ---
DATE: 11/24/2018 REQUESTED BY: Adrianna Worrell MD Urology consultation is filled by Dr. Amanda Hill. REASON FOR CONSULTATION: Urolithiasis. HISTORY OF PRESENT ILLNESS: The patient is a 63-year-old male with urolithiasis. The patient is in otherwise good health. The patient presented to the emergency room with abdominal pain. The patient also reports swelling of the lower extremities. The patient also reports nausea. The patient had previous vomiting, which resolved. Mr. Nava reports a sensation of shaking chills; however, no fever was recorded. The patient has significant urologic history. The patient last month presented with left renal colic secondary to distal left ureteral stone. The patient had cystoscopy and stent insertion performed in 10/2018. On 11/21/2018, the patient had extracorporeal shockwave lithotripsy performed for distal ureteral stone. Fair to good fragmentation was noted on the fluoroscopic views at the time of ESWL. Mr. Nava has previous history of urolithiasis. He had previous treatment for stones, approximately 15 to 18 years ago. Of note, the patient also has bilateral small renal stones. There has been no hematuria. The patient reports that he did pass few small stone fragments. He reports no further passage of stone fragments over the past day. Mr. Nava has history of Crohn disease. The patient lives alone. 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 The patient does not smoke or drink. PHYSICAL EXAMINATION: GENERAL: The patient is a well-developed, well-nourished overweight male appearing his stated age. ABDOMEN: Soft, nondistended, nontender. BACK: No CVA tenderness. GENITALIA: Without inflammation. LABORATORY DATA: Reviewed, see attached report. CAT scan is reviewed as well. The left ureteral stent is in good position. There is no trauma noted to the urinary tract. There is a stone adjacent to the left distal ureteral stent (this stone is not noted on the official reading). Additionally, there are bilateral small renal stones. The stent is in proper position within the left kidney and within the bladder. IMPRESSION: 1. Urolithiasis. History of previous extracorporeal shockwave lithotripsy. Now with abdominal pain. The patient also reports swelling of the lower extremities. 2. Possible urinary tract infection. Ureterolithiasis. RECOMMENDATION AND PLAN: Hydration. Strain urine. I will discuss with the patient regarding further management. I will discuss with attending physician, Dr. Worrell regarding further management. Possible cystoscopy and ureteroscopy. Urine culture. Antibiotic therapy. Thank you for recommending the patient for urology consultation. [place] MD Sergio cc: Adrianna Worrell MD
--- NOTE | 2018-11-28 04:50 | OP ---
PROCEDURE DATE: 11/25/2018 UROLOGY OPERATIVE REPORT PREOPERATIVE DIAGNOSIS: Left ureteral calculus. POSTOPERATIVE DIAGNOSIS: Left ureteral calculus. PROCEDURES: Cystoscopy, left ureteroscopy, left ureteral laser lithotripsy, left ureteral stone basketing, insertion of left ureteral stent. Procedure was performed under video endoscopic control as well as under fluoroscopic control. The patient had received perioperative antibiotics. The patient was placed in lithotomy position. Genitalia were prepped and draped sterilely. Anesthesia was applied by the anesthesiologist. The procedure was performed under fluoroscopic control as well as video endoscopic control. The patient was in lithotomy position. Genitalia were prepped and draped sterilely. A 22-Taiwanese cystoscope sheath was introduced under direct vision. Urethra, prostate and bladder were inspected with 30-degree lens. [employer] film of the abdomen revealed the left ureteral stent in proper position. There was a calcification noted in the distal ureter just lateral to the left ureteral stent. The left ureteral stent was identified and grasped with rigid grasping forceps. The stent was delivered through the distal end of the cystoscope sheath. A 0.035-inch guidewire was inserted into the ureteral stent and passed up to level of the kidney. The stent was removed. Ureteroscopy was performed with a 7-Taiwanese mini rigid ureteroscope. The ureteroscope was passed through the cystoscope sheath into the bladder. The ureteral orifice was identified. A second guidewire was advanced into the ureter. The ureteroscope was advanced over the guidewire. Ureteroscopy was performed in an atraumatic fashion. The ureteral calculus was identified. The calculus was noted to be incompletely fragmented. There was too large fragment, the large fragment was approximately 5 mm. Laser lithotripsy was performed on both fragments using the holmium laser and 365-micron fiber. Lithotripsy was performed in dusting mode. There was excellent dusting as well as fragmentation. The fragments were removed using the flat wire, 2.8 stone basket. The stones were removed under direct ureteroscopic control in an atraumatic fashion. Repeat ureteroscopy was performed up to the level of the sacrum. There were no further stones identified. A 6-Taiwanese, multilength ureteral stent was inserted over the remaining guidewire. Proper stent position was confirmed with fluoroscopy and endoscopy. The guidewire was removed. The stent was left in place. The bladder was re-inspected and confirmed the above findings. The bladder was drained. Cystoscope and sheath were removed. Exam under anesthesia was performed. There was no abnormal pelvic mass fixation or induration. Prostate was supple and smooth, approximately 25 g in size, without fixation, induration or nodularity. The patient was returned to supine position. The patient was transferred to recovery room in satisfactory condition. Amanda Hill MD
[2018-11-28] MEDS: cefTRIAXone IV 1 gm in Dextros 50 ML IVPB SCH (09:28)
[2018-11-28] MEDS: Cholestyramine 4 gm/Pkt UD PO SCH ×2 (09:29→18:00)
[2018-11-28] MEDS: Enoxaparin 40 mg Syringe SC SCH (09:29)
[2018-11-28] MEDS: Potassium Chloride 20 mEq ER Tab PO SCH ×2 (09:31→13:40)
[2018-11-28] MEDS: Multivitamin With Minerals Tab PO SCH (09:32)
[2018-11-28] MEDS: Pantoprazole 40 mg EC Tab PO SCH (09:32)
--- NOTE | 2018-11-28 10:24 | PN ---
DATE: 11/27/2018 See the previously dictated notes from Dr. Amanda Hill. SUBJECTIVE: The patient is now currently resting comfortably in his bed. He is status post cysto stent and treatment for his stone. See those notes. The patient reports minimal stent discomfort. He is complaining that his lower extremity is swollen. See the plan listed below. PHYSICAL EXAMINATION: GENERAL: There is no apparent distress. VITAL SIGNS: Are noted. ABDOMEN: Relatively soft. EXTREMITIES: His extremities have mild edema. DIAGNOSES: Urolithiasis and hematuria. He is now status post cysto stent insertion. Further plans will follow with Dr. Amanda Hill. The patient actually reminds me that about 15 years ago he was treated by me and about 15 years before, he was treated by Dr. Amanda Hill for his kidney stones, so it is odd that he gets a stone once every 15 years. We had a long discussion. Regarding his lower extremity, he has resumed his water pills. He is under the care of Dr. Worrell here in [place]. He is under the care of Dr. Vern Zamora. From a urology standpoint, no other plans for today. The patient is eating and drinking well. Further plans will follow. We will follow along. Alexei Hill MD
[2018-11-28 11:25] LABS: BASO % 0.8 % (0.0-2.0); EOS # 0.1 K/uL (0.0-0.7); EOS % 2.4 % (0.0-4.0); LYMPH # 0.5 K/uL (1.0-4.3); LYMPH % 11.2 % (20.0-40.0); MEAN CELL VOLUME 92.9 fL (80.0-94.0); MEAN CORPUSCULAR HEMOGLOBIN 30.5 pg (27.0-31.0); MEAN CORPUSCULAR HGB CONC 32.8 g/dL (33.0-37.0); MEAN PLATELET VOLUME 10.7 fL (7.2-11.7); MONO # 0.7 K/uL (0.0-0.8); MONO % 15.5 % (0.0-10.0); NEUT # 3.2 K/uL (1.8-7.0); NEUT % 70.1 % (50.0-75.0); NRBC % 0.1 % (0.0-2.0); RBC 4.28 Mil/uL (4.40-5.90); RED CELL DISTRIBUTION WIDTH 15.1 % (11.5-14.5); WHITE BLOOD COUNT 4.6 K/uL (4.8-10.8)
--- NOTE | 2018-11-28 11:35 | CP.PCM.PN ---
Subjective - Date & Time of Evaluation Date of Evaluation: 11/28/18 Time of Evaluation: 11:32 - Subjective Subjective: pt c/o of constipation abd gas and distension Objective - Vital Signs/Intake and Output Vital Signs (last 24 hours): Temp Pulse Resp BP Pulse Ox 97.9 F 72 20 122/76 96 11/28/18 07:10 11/28/18 07:10 11/28/18 07:10 11/28/18 09:30 11/28/18 07:10 Intake and Output: 11/28/18 11/28/18 06:59 18:59 Intake Total 240 Output Total 400 Balance -160 - Medications Medications: Current Medications Azathioprine (Imuran) 125 mg PO HS [facility] Last Admin: 11/27/18 21:17 Dose: Not Given Cholestyramine Resin (Questran) 4 gm PO BID [facility] Last Admin: 11/28/18 09:29 Dose: Not Given Enoxaparin Sodium (Lovenox) 40 mg SC DAILY [facility] Last Admin: 11/28/18 09:29 Dose: 40 mg Furosemide (Lasix) 40 mg IVP DAILY [facility] Stop: 11/29/18 10:01 Last Admin: 11/28/18 09:30 Dose: 40 mg Hydromorphone HCl (Dilaudid) 0.5 mg IVP Q10M PRN PRN Reason: Pain, moderate (4-7) Last Admin: 11/25/18 11:28 Dose: 0.5 mg Ceftriaxone Sodium (Rocephin Iv 1 Gm Duplex) 50 mls @ 100 mls/hr IVPB DAILY [facility]; Protocol Last Admin: 11/28/18 09:28 Dose: 100 mls/hr Lisinopril (Zestril) 20 mg PO DAILY [facility] Last Admin: 11/28/18 09:34 Dose: 20 mg Mesalamine (Delzicol Dr) 1,200 mg PO DAILY [facility] Last Admin: 11/28/18 09:33 Dose: 1,200 mg Multivitamins/Minerals (Therapeutic-M Tab) 1 tab PO DAILY [facility] Last Admin: 11/28/18 09:32 Dose: 1 tab Mupirocin (Bactroban Ointment) 0 gm TOP TID [facility] Last Admin: 11/28/18 09:32 Dose: 1 applic Ondansetron HCl (Zofran Inj) 4 mg IVP Q6 PRN PRN Reason: Nausea/Vomiting Last Admin: 11/27/18 17:57 Dose: 4 mg Pantoprazole Sodium (Protonix Ec Tab) 40 mg PO DAILY [facility] Last Admin: 11/28/18 09:32 Dose: 40 mg Potassium Chloride (K-Dur 20 Meq Er Tab) 20 meq PO DAILY [facility] Stop: 11/30/18 10:01 Last Admin: 11/28/18 09:31 Dose: 20 meq Sumatriptan Succinate (Imitrex Tab) 100 mg PO DAILY PRN PRN Reason: Migraine headache Last Admin: 11/27/18 21:13 Dose: 100 mg Tamsulosin HCl (Flomax) 0.4 mg PO DAILY [facility] Last Admin: 11/28/18 09:32 Dose: 0.4 mg - Labs Labs: 11/28/18 11:11 11/26/18 07:21 PT 13.9 SECONDS (9.7-12.2) H 11/24/18 19:59 INR 1.3 11/24/18 19:59 APTT 33 SECONDS (21-34) 11/24/18 19:59 - Constitutional Appears: Non-toxic - Head Exam Head Exam: ATRAUMATIC - Eye Exam Eye Exam: Normal appearance Pupil Exam: NORMAL ACCOMODATION - ENT Exam ENT Exam: Normal Exam - Neck Exam Neck Exam: Normal Inspection - Respiratory Exam Respiratory Exam: NORMAL BREATHING PATTERN - Cardiovascular Exam Cardiovascular Exam: REGULAR RHYTHM - GI/Abdominal Exam GI & Abdominal Exam: Distended - Rectal Exam Rectal Exam: NORMAL INSPECTION - Back Exam Back Exam: NORMAL INSPECTION - Neurological Exam Neurological Exam: Alert, Awake, Oriented x3 - Psychiatric Exam Psychiatric exam: Normal Mood - Skin Skin Exam: Dry Assessment and Plan - Assessment and Plan (Free Text) Assessment: constipation abd gas distension hx of chrons disesed Plan: will give stool softner after moving bowel will discharge
[2018-11-28 11:45] LABS: BLOOD UREA NITROGEN 11 mg/dL (9-20); CALCIUM 8.8 mg/dl (8.6-10.4); GFR NON-AFRICAN AMERICAN > 60
--- NOTE | 2018-11-28 17:33 | PCM.URO ---
Urology Progress Note - Objective Lab Results Last 24 Hours: Laboratory Results - last 24 hr 11/28/18 11/28/18 11:11 11:11 WBC 4.6 L RBC 4.28 L Hgb 13.0 Hct 39.7 MCV 92.9 MCH 30.5 MCHC 32.8 L RDW 15.1 H Plt Count 202 MPV 10.7 Neut % (Auto) 70.1 Lymph % (Auto) 11.2 L [place] % (Auto) 15.5 H Eos % (Auto) 2.4 Baso % (Auto) 0.8 Neut # (Auto) 3.2 Lymph # (Auto) 0.5 L [place] # (Auto) 0.7 Eos # (Auto) 0.1 Baso # (Auto) 0.0 Sodium 136 Potassium 3.0 L Chloride 96 L Carbon Dioxide 30 Anion Gap 13 BUN 11 Creatinine 0.9 Est GFR ( Amer) > 60 Est GFR (Non-Af Amer) > 60 Random Glucose 128 H D Calcium 8.8 Intake & Output: Intake & Output 11/27/18 11/28/18 11/28/18 18:59 06:59 18:59 Intake Total 600 240 Output Total 800 400 Balance -200 -160 Intake: Oral 600 240 Output: Urine 800 400 Urine, Voided 800 400 Other: # Bowel Movements 0 1 Vital Signs: Vital Signs - 24 hr 11/28/18 11/28/18 11/28/18 00:05 07:10 09:30 Temperature 98.4 F 97.9 F Pulse Rate 72 72 Respiratory 20 20 Rate Blood Pressure 138/80 122/76 122/76 O2 Sat by Pulse 97 96 Oximetry 11/28/18 15:52 Temperature 97.7 F Pulse Rate 80 Respiratory 18 Rate Blood Pressure 112/73 O2 Sat by Pulse 97 Oximetry - Date & Time of Note Date: 11/28/18 Time: 12:45
[2018-11-29 00:17] VITALS: RESP 20; TEMP 98.3
[2018-11-29 08:20] VITALS: PULSE 66; O2SAT 95
[2018-11-29] MEDS: Enoxaparin 40 mg Syringe SC SCH (09:58)
[2018-11-29] MEDS: Potassium Chloride 20 mEq ER Tab PO SCH ×2 (10:00→11:16)
[2018-11-29] MEDS: Pantoprazole 40 mg EC Tab PO SCH (10:00)
[2018-11-29] MEDS: Cholestyramine 4 gm/Pkt UD PO SCH (10:01)
[2018-11-29] MEDS: Multivitamin With Minerals Tab PO SCH (10:01)
[2018-11-29 10:02] VITALS: BP 113/70
[2018-11-29] MEDS: cefTRIAXone IV 1 gm in Dextros 50 ML IVPB SCH (10:07)
[2018-11-29 11:40] LABS: BLOOD UREA NITROGEN 12 mg/dL (9-20); CALCIUM 8.4 mg/dl (8.6-10.4); GFR NON-AFRICAN AMERICAN > 60
--- NOTE | 2018-11-29 11:45 | CP.PCM.PN ---
Subjective - Date & Time of Evaluation Date of Evaluation: 11/29/18 Time of Evaluation: 11:42 - Subjective Subjective: pt feels beter move his bowel small pieces today will give him stool sfner and discharge Objective - Vital Signs/Intake and Output Vital Signs (last 24 hours): Temp Pulse Resp BP Pulse Ox 98.3 F 66 20 113/70 95 11/29/18 07:00 11/29/18 07:00 11/29/18 07:00 11/29/18 09:58 11/29/18 07:00 Intake and Output: 11/29/18 11/29/18 06:59 18:59 Intake Total 240 Balance 240 - Medications Medications: Current Medications Azathioprine (Imuran) 125 mg PO HS [facility] Last Admin: 11/28/18 21:15 Dose: 125 mg Cholestyramine Resin (Questran) 4 gm PO BID [facility] Last Admin: 11/29/18 10:01 Dose: Not Given Enoxaparin Sodium (Lovenox) 40 mg SC DAILY [facility] Last Admin: 11/29/18 09:58 Dose: 40 mg Ceftriaxone Sodium (Rocephin Iv 1 Gm Duplex) 50 mls @ 100 mls/hr IVPB DAILY [facility]; Protocol Last Admin: 11/29/18 10:07 Dose: 100 mls/hr Lisinopril (Zestril) 20 mg PO DAILY [facility] Last Admin: 11/29/18 09:57 Dose: 20 mg Mesalamine (Delzicol Dr) 1,200 mg PO DAILY [facility] Last Admin: 11/29/18 09:59 Dose: 1,200 mg Multivitamins/Minerals (Therapeutic-M Tab) 1 tab PO DAILY [facility] Last Admin: 11/29/18 10:01 Dose: 1 tab Mupirocin (Bactroban Ointment) 0 gm TOP TID [facility] Last Admin: 11/29/18 10:01 Dose: Not Given Ondansetron HCl (Zofran Inj) 4 mg IVP Q6 PRN PRN Reason: Nausea/Vomiting Last Admin: 11/27/18 17:57 Dose: 4 mg Pantoprazole Sodium (Protonix Ec Tab) 40 mg PO DAILY [facility] Last Admin: 11/29/18 10:00 Dose: 40 mg Potassium Chloride (K-Dur 20 Meq Er Tab) 20 meq PO DAILY [facility] Stop: 02/24/19 10:01 Last Admin: 11/29/18 11:16 Dose: Not Given Sumatriptan Succinate (Imitrex Tab) 100 mg PO DAILY PRN PRN Reason: Migraine headache Last Admin: 11/28/18 21:16 Dose: 100 mg Tamsulosin HCl (Flomax) 0.4 mg PO DAILY [facility] Last Admin: 11/29/18 10:00 Dose: 0.4 mg - Labs Labs: 11/28/18 11:11 11/29/18 11:20 PT 13.9 SECONDS (9.7-12.2) H 11/24/18 19:59 INR 1.3 11/24/18 19:59 APTT 33 SECONDS (21-34) 11/24/18 19:59 - Constitutional Appears: Non-toxic - Head Exam Head Exam: NORMAL INSPECTION - Eye Exam Eye Exam: Normal appearance Pupil Exam: NORMAL ACCOMODATION - ENT Exam ENT Exam: Normal Exam - Neck Exam Neck Exam: Full ROM - Respiratory Exam Respiratory Exam: Clear to Ausculation Bilateral - Cardiovascular Exam Cardiovascular Exam: REGULAR RHYTHM - GI/Abdominal Exam GI & Abdominal Exam: Normal Bowel Sounds - Rectal Exam Rectal Exam: NORMAL INSPECTION - Exam Exam: NORMAL INSPECTION - Extremities Exam Extremities Exam: Full ROM - Back Exam Back Exam: NORMAL INSPECTION - Neurological Exam Neurological Exam: Awake - Psychiatric Exam Psychiatric exam: Normal Affect - Skin Skin Exam: Normal Color Assessment and Plan - Assessment and Plan (Free Text) Assessment: constipation chrons disease renal stons uti Plan: discharge pt f/u by his md
--- NOTE | 2018-12-09 13:31 | DS ---
HISTORY OF PRESENT ILLNESS: This is a patient of Dr. Hill. He came into the emergency room and was sent to have admission. He did have infection in his urine and he has abdominal pain and renal stones. Dr. Hill saw him and he did a cystoscopy. We did all the cultures and started him on antibiotics and he had IV fluids. PHYSICAL EXAMINATION: VITAL SIGNS: His temperature was 98.2 and his blood pressure was okay at 126/75 and his pulse ox was fine. LABORATORY DATA: His labs were unremarkable, was okay. His urine cultures showed no growth. He went for cystoscopy by Dr. Hill, had lithotripsy and stone basketing and stent insertion. After that, he was continued on IV hydration and antibiotics and his blood work was stable. He was more comfortable. He was discharged on 11/29/2018 because he was feeling better and he was able to urinate and he did not have any pain anymore. All his labs were fine. His white count was normal. His sugar was okay and he was sent home with antibiotics to continue and followup by Dr. Hill. His abdominal x-ray showed pelvic calcification . His CAT scan of the abdomen and pelvis was done and it shows left-sided urethral stent, 4 mm nonobstructive left lower pole renal calculus, a 2 mm mid pole and 3 mm right lower pole nonobstructing renal calculi and no hydronephrosis. A 4.5 cm heterogenous hypodense left lower pole mass, complex cyst. Consider renal ultrasound. Mildly enlarged prostate. FINAL DIAGNOSES: Acute urinary tract infection, renal stones, renal cyst, and benign prostatic hypertrophy. Adrianna Worrell MD
== END 2018-11-29 15:30 | disposition home or self-care (01) | DRG 660 ==
LOC: C.ER 09:08 → C.9E 12:40 → C.6T 15:39
PROVIDERS: ADMIT Internal Medicine; ATTEND Internal Medicine
PROC: 0T778DZ Dilation of Left Ureter with Intraluminal Device, Via Natural or Artificial Opening Endoscopic (ICD-10-PCS; 2018-11-25)
PROC: 0TC78ZZ Extirpation of Matter from Left Ureter, Via Natural or Artificial Opening Endoscopic (ICD-10-PCS; principal; 2018-11-25 08:30)
DX: N20.2 Calculus of kidney with calculus of ureter (principal); N39.0 Urinary tract infection, site not specified; K50.90 Crohn's disease, unspecified, without complications; B35.1 Tinea unguium; E66.9 Obesity, unspecified; I10 Essential (primary) hypertension; K59.00 Constipation, unspecified; M21.40 Flat foot [pes planus] (acquired), unspecified foot; K44.9 Diaphragmatic hernia without obstruction or gangrene; Z87.442 Personal history of urinary calculi; N40.0 Benign prostatic hyperplasia without lower urinary tract symptoms; N28.1 Cyst of kidney, acquired; Z68.37 Body mass index [BMI] 37.0-37.9, adult